=== PATIENT | male | born 1980 | race Caucasian/White ===

== ENCOUNTER 2018-02-07 16:19 | Emergency (ER) | payer MEDICAID ==
[2018-02-07] MEDS ORDERED: NORMAL SALINE 1000 ML 1,000 ML IV ONE (16:27)
--- NOTE | 2018-02-07 16:27 | ER Document Report ---
ED General - General Mode of Arrival: Medic Information source: Emergency Med Personnel Cannot obtain history due to: Unstable vital signs, Altered mental status TRAVEL OUTSIDE OF THE [place] IN LAST 30 DAYS: No <GIRISH CALDERON - Last Filed: 02/07/18 19:49> <KOLE AVALOS - Last Filed: 02/07/18 23:33> - General Chief Complaint: Overdose Stated Complaint: SEIZURE Time Seen by Provider: 02/07/18 16:26 Notes: 37-year-old male that presents today after possible overdose of Wellbutrin and EtOH. According to EMS, they were called by the patient's girlfriend after the patient had a seizure. EMS states that the Wellbutrin was the girlfriend's and it had been for several years. Girlfriend was not aware how many were left in the bottle but it was empty when EMS arrived. Girlfriend reports a possible seizure history but she is not certain. There were no other medications that the patient took as far as EMS and the girlfriend are aware. EMS states when they arrived on scene the patient was hypotensive at 69/37 with a normal heart rate. EMS states the patient was saturating 96% on a nonrebreather so no other intervention was performed prior to arrival. EMS states when going through the doors of the ER the patient began seizing again. EMS states the patient seemed like he was trying to sit up and get off the stretcher en route here but he never talked or responded to them during the entire interaction. EMS reports that the patient "had a bad week" as he lost custody of his son during a hearing yesterday according to the girlfriend. (GIRISH CALDERON) - Related Data Allergies/Adverse Reactions: levofloxacin [From Levaquin] Allergy (Verified 12/18/13 15:21) Past Medical History - General Cannot obtain history due to: Unstable vital signs, Altered mental status - Social History Smoking Status: Unknown if Ever Smoked Family History: Reviewed & Not Pertinent - Past Medical History Cardiac Medical History: Reports: Hx Hypercholesterolemia Pulmonary Medical History: Reports: Hx Pneumonia GI Medical History: Reports: Hx Gastroesophageal Reflux Disease Past Surgical History: Reports: Hx Oral Surgery - Immunizations Immunizations up to date: No Hx Diphtheria, Pertussis, Tetanus Vaccination: Yes <GIRISH CALDERON - Last Filed: 02/07/18 19:49> Review of Systems - Review of Systems -: Yes ROS unobtainable due to patient's medical condition <GIRISH CALDERON - Last Filed: 02/07/18 19:49> Physical Exam - Vital signs Interpretation: Hypotensive, Hypoxic - General General appearance: Unresponsive In distress: Severe - Respiratory Respiratory status: No respiratory distress Breath sounds: Normal - Cardiovascular Rhythm: Regular, Tachycardia - Abdominal Inspection: Normal Tenderness: Nontender - Extremities General upper extremity: Normal inspection, Normal ROM General lower extremity: Normal inspection, Normal ROM - Neurological [place] Coma Scale Eye Opening: None [place] Coma Scale Verbal: None [place] Coma Scale Motor: None [place] Coma Scale Total: 3 - Skin Skin Temperature: Warm Skin Moisture: Dry <KOLE AVALOS - Last Filed: 02/07/18 23:33> Course - Laboratory Result Diagrams: 02/07/18 16:25 02/07/18 16:25 <GIRISH CALDERON - Last Filed: 02/07/18 19:49> - Laboratory Result Diagrams: 02/07/18 16:25 02/07/18 16:25 - Diagnostic Test Radiology reviewed: Reports reviewed <OKLE AVALOS - Last Filed: 02/07/18 23:33> - Re-evaluation Re-evalutation: 02/07/18 16:33 Poison control 02/07/18 15:[address] [facility]hoan Patel ([facility] accepts patient for transfer 02/07/18 17:42 Girlfriend has arrived. Reports the patient took #51 150mg Wellbutrin prior to arrival 02/07/18 18:24 Patient awake and talking complains of feeling nauseated, zofran ordered. (GIRISH CALDERON) Patient is a 37-year-old male who is brought in by EMS. Initial call was for seizure. Patient initially with no response for EMS and was hypotensive so fluids were initiated. Patient began to wake up and pull off his equipment and then began having a seizure on the way into the emergency department. He was initially unresponsive but also possibly postictal after given Ativan for seizure activity. Initial blood gas 6.88 Planning to intubate patient but then had response to painful stimuli and had purposeful movement. Decided to repeat blood gas and monitor patient so that could watch his mental status. Bicarb drip was initiated for probable Wellbutrin overdose and acidosis Patient became more responsive and was conversive although confused. No acute findings on head CT Likely Wellbutrin toxicity. Initial lactic was 15.5 Fluids given to patient which were to switch from normal saline to half-normal after sodium came back at 156 Poison control contacted multiple times regarding this patient and they are aware that he will be transferred. Blood pressure resolving and tachycardia decreasing Patient conversational awake, maintaining airway so did not intubate. Transferred to [facility] due to lack of recreation facility attendant at this facility agreeable to plan and transfer 02/07/18 19:49 Transport is here for patient. Awake and interactive although still confused. Stable for transport. Patient is maintaining his airway with no further seizure activity since presentation (KOLE AVALOS) - Laboratory Laboratory results interpreted by me: 02/07/18 02/07/18 02/07/18 16:25 16:25 16:25 ABG pH ABG pO2 ABG HCO3 ABG Total CO2 ABG O2 Saturation VBG pH 6.88 L* VBG pCO2 83.2 H* VBG HCO3 15.0 L Sodium 156.5 H Chloride 114 H Carbon Dioxide 16 L Anion Gap 27 H Serum Osmolality Lactic Acid 15.5 H ALT 16 L Urine Protein Salicylates < 1.0 L Acetaminophen < 10 L 02/07/18 02/07/18 02/07/18 16:25 16:25 17:35 ABG pH 7.21 L ABG pO2 184.4 H ABG HCO3 16.5 L ABG Total CO2 17.7 L ABG O2 Saturation 99.0 H VBG pH VBG pCO2 VBG HCO3 Sodium Chloride Carbon Dioxide Anion Gap Serum Osmolality 347 H Lactic Acid ALT Urine Protein 30 H Salicylates Acetaminophen Critical Care Note - Critical Care Note Total time excluding time spent on procedures (mins): 150 - Evaluation and management of overdose, will re-evaluations, coordination with poison control, coordination of transfer, counseling of patient and family <KOLE AVALOS - Last Filed: 02/07/18 23:33> Discharge <GIRISH CALDERON - Last Filed: 02/07/18 19:49> <KOLE AVALOS - Last Filed: 02/07/18 23:33> - Discharge Clinical Impression: Intentional overdose of drug in tablet form, Seizure, Hypernatremia, Acidosis Hypotension Qualifiers: Hypotension type: unspecified hypotension type Qualified Code(s): I95.9 - Hypotension, unspecified Condition: Serious Disposition: [facility] Scribe Attestation: 02/07/18 23:33 I personally performed the services described in the documentation, reviewed and edited the documentation which was dictated to the scribe in my presence, and it accurately records my words and actions. (KOLE AVALOS) Scribe Documentation - Scribe Written by Scribe:: Rodney Freitas, 02/07/2018 [id number] acting as scribe for :: Erika <GIRISH CALDERON - Last Filed: 02/07/18 19:49>
[2018-02-07] MEDS ORDERED: LORAZEPAM INJ 2 MG/1 ML VIAL ONE (16:32)
[2018-02-07] MEDS ORDERED: NORMAL SALINE 1000 ML 1,000 ML IV PRN (16:39)
[2018-02-07 16:45] LABS: VENOUS BLOOD BASE EXCESS -20.1 mmol/L
[2018-02-07 16:47] LABS: VENOUS BLOOD PCO2 83.2 mmHg (35-63); VENOUS BLOOD PH 6.88 (7.30-7.42)
[2018-02-07] MEDS ORDERED: DEXTROSE 5%-WATER 1000 ML 1,000 ML with SODIUM BICARBONATE 150 MEQ IV PRN ×2 (16:48)
[2018-02-07 16:50] LABS: INTERNATIONAL RATION (INR) 1.03
[2018-02-07 16:51] LABS: HEMATOCRIT 47.2 % (37.9-51.0); HEMOGLOBIN 15.8 g/dL (13.5-17.0); MEAN CORPUSCULAR HEMOGLOBIN 30.5 pg (27.0-33.4); MEAN CORPUSCULAR HGB CONC 33.6 g/dL (32.0-36.0); MEAN CORPUSCULAR VOLUME 91 fl (80-97); PLATELET COUNT 258 10^3/uL (150-450); RED BLOOD COUNT 5.19 10^6/uL (4.35-5.55); RED CELL DISTRIBUTION WIDTH 13.1 % (11.5-14.0); WHITE BLOOD COUNT 7.4 10^3/uL (4.0-10.5)
[2018-02-07] MEDS ORDERED: SODIUM BICARBONATE 8.4% INJ 50 MEQ/50 ML DISP.SYRIN ONE ×2 (16:51→17:11)
--- NOTE | 2018-02-07 16:56 | RADIOLOGY REPORT (SQ) ---
EXAM DESCRIPTION: CT HEAD WITHOUT COMPLETED DATE/TIME: 02/07/2018 4:46 pm REASON FOR STUDY: AMS COMPARISON: None. TECHNIQUE: Axial images acquired through the brain without intravenous contrast. Images reviewed wi th bone, brain and subdural windows. Additional sagittal and coronal reconstructions were generated. Images stored on PACS. All CT scanners at this facility use dose modulation, iterative reconstruction, and/or weight based d osing when appropriate to reduce radiation dose to as low as reasonably achievable (ALARA). [facility]: Dose Right [facility]: CareDose [facility]: Dose Right [facility]: Teradose 4D [facility]: Vokle RADIATION DOSE: CT Rad equipment meets quality standard of care and radiation dose reduction techniq ues were employed. CTDIvol: 53.2 mGy. DLP: 1044 mGy-cm. mGy. LIMITATIONS: None. FINDINGS: VENTRICLES: Normal size and contour. Incidental note is made of normal variant persistent cavum septum pellucidum. CEREBRUM: No masses. No hemorrhage. No midline shift. No evidence for acute infarction. Normal gra y/white matter differentiation. No areas of low density in the white matter. CEREBELLUM: No masses. No hemorrhage. No alteration of density. No evidence for acute infarction. EXTRAAXIAL SPACES: No fluid collections. No masses. ORBITS AND GLOBE: No intra- or extraconal masses. Normal contour of globe without masses. CALVARIUM: No fracture. PARANASAL SINUSES: No fluid or mucosal thickening. SOFT TISSUES: No mass or hematoma. OTHER: No other significant finding. IMPRESSION: NORMAL BRAIN CT WITHOUT CONTRAST. EVIDENCE OF ACUTE STROKE: NO. COMMENT: Quality ID # [id number]: Final reports with documentation of one or more dose reduction techniques (e.g., Automated exposure control, adjustment of the mA and/or kV according to patient size, use of iterative reconstruction technique) TECHNICAL DOCUMENTATION: JOB ID: [id number] [employer]- All Rights Reserved Reading location - IP/workstation name: [email or web address]
--- NOTE | 2018-02-07 16:58 | RADIOLOGY REPORT (SQ) ---
EXAM DESCRIPTION: CT CHEST WITHOUT COMPLETED DATE/TIME: 02/07/2018 4:46 pm REASON FOR STUDY: AMS, hypoxia COMPARISON: Same day chest radiograph and earlier TECHNIQUE: CT scan performed of the chest without intravenous contrast. Images reviewed with lung, soft tissue and bone windows. Reconstructed coronal and sagittal MPR images reviewed. All images st ored on PACS. All CT scanners at this facility use dose modulation, iterative reconstruction, and/or weight based d osing when appropriate to reduce radiation dose to as low as reasonably achievable (ALARA). [facility]: Dose Right [facility]: CareDose [facility]: Dose Right [facility]: Teradose 4D [facility]: Smart Departing RADIATION DOSE: CT Rad equipment meets quality standard of care and radiation dose reduction techniq ues were employed. CTDIvol: 14.4 mGy. DLP: 496 mGy-cm. mGy. LIMITATIONS: No technical limitations. FINDINGS: LUNGS AND PLEURA: No masses, infiltrates, or pneumothorax. No pleural effusions or pleura l calcifications. HILAR AND MEDIASTINAL STRUCTURES: No identified masses or abnormal nodes. No obvious aneurysm. HEART AND VASCULAR STRUCTURES: No aneurysm. No pericardial effusion. UPPER ABDOMEN: No significant findings. Limited exam. THYROID AND OTHER SOFT TISSUES: No masses. No adenopathy. BONES: No significant finding. HARDWARE: None in the chest. OTHER: No other significant findings. IMPRESSION: NO SIGNIFICANT FINDING ON NON-CONTRASTED CHEST CT. TECHNICAL DOCUMENTATION: JOB ID: [id number] Quality ID # [id number]: Final reports with documentation of one or more dose reduction techniques (e.g., Au tomated exposure control, adjustment of the mA and/or kV according to patient size, use of iterative reconstruction technique) 2010 [employer]- All Rights Reserved Reading location - IP/workstation name: [email or web address]
[2018-02-07 17:00] LABS: ALANINE AMINOTRANSFERASE 16 U/L (21-72); ALBUMIN 4.6 g/dL (3.5-5.0); ALCOHOL 105 mg/dL (NONE DETECTED); ALKALINE PHOSPHATASE 63 U/L (38-126); ASPARTATE AMINO TRANSFERASE 35 U/L (17-59); BILIRUBIN,DIRECT 0.3 mg/dL (0.0-0.4); BILIRUBIN,TOTAL 0.5 mg/dL (0.2-1.3); BLOOD UREA NITROGEN 12 mg/dL (7-20); CALCIUM 9.4 mg/dL (8.4-10.2); GLUCOSE 96 mg/dL (75-110); POTASSIUM 4.3 mmol/L (3.6-5.0); TOTAL PROTEIN 7.4 g/dL (6.3-8.2)
[2018-02-07] MEDS ORDERED: PROPOFOL 1,000 MG/100 ML INFUS..BTL IV ONE (17:00)
[2018-02-07 17:05] LABS: CARBON DIOXIDE 16 mmol/L (22-30); CHLORIDE 114 mmol/L (98-107); SODIUM 156.5 mmol/L (137-145)
[2018-02-07 17:07] LABS: ACETAMINOPHEN < 10 ug/mL (10-30); ANION GAP 27 (5-19); SALICYLATE < 1.0 mg/dL (2.0-20.0)
[2018-02-07 17:09] LABS: ABSOLUTE LYMPHOCYTES# (MANUAL) 2.2 10^3/uL (0.5-4.7); ABSOLUTE MONOCYTES # (MANUAL) 0.4 10^3/uL (0.1-1.4); ABSOLUTE NEUTROPHILS# (MANUAL) 4.7 10^3/uL (1.7-8.2); BASOPHILS % (MANUAL) 0 % (0-2); EOSINOPHILS % (MANUAL) 0 % (0-6); LYMPHOCYTES % (MANUAL) 30 % (13-45); MONOCYTES % (MANUAL) 6 % (3-13); PLATELET COMMENT ADEQUATE; SEGMENTED NEUTROPHILS % (MAN) 64 % (42-78); TOTAL CELLS COUNTED 100
[2018-02-07] MEDS ORDERED: 1/2 NORMAL SALINE 1,000 ML IV ONE (17:13)
--- NOTE | 2018-02-07 17:17 | RADIOLOGY REPORT (SQ) ---
EXAM DESCRIPTION: CHEST SINGLE VIEW COMPLETED DATE/TIME: 02/07/2018 5:05 pm REASON FOR STUDY: AMS COMPARISON: 12/18/2013 EXAM PARAMETERS: NUMBER OF VIEWS: One view. TECHNIQUE: Single frontal radiographic view of the chest acquired. RADIATION DOSE: NA LIMITATIONS: None. FINDINGS: LUNGS AND PLEURA: No opacities, masses or pneumothorax. No pleural effusion. MEDIASTINUM AND HILAR STRUCTURES: No masses. Contour normal. HEART AND VASCULAR STRUCTURES: Heart normal in size. Normal vasculature. BONES: No acute findings. HARDWARE: None in the chest. OTHER: No other significant finding. IMPRESSION: NO ACUTE RADIOGRAPHIC FINDING IN THE CHEST. TECHNICAL DOCUMENTATION: JOB ID: [id number] [employer]- All Rights Reserved Reading location - IP/workstation name: [email or web address]
[2018-02-07 17:55] LABS: ARTERIAL BLOOD BASE EXCESS -10.9 mmol/L; ARTERIAL BLOOD H2CO3 1.26 mmol/L (1.05-1.35); ARTERIAL BLOOD HCO3 16.5 mmol/L (20-24); ARTERIAL BLOOD PH 7.21 (7.35-7.45); ARTERIAL BLOOD PO2 184.4 mmHg (80-100); ARTERIAL BLOOD TOTAL CO2 17.7 mmol/L (23-27)
[2018-02-07 17:56] LABS: ARTERIAL BLOOD FIO2 98%
[2018-02-07 18:00] LABS: APPEARANCE,URINE SLIGHTLY-CLOUDY; BILIRUBIN,URINE NEGATIVE (NEGATIVE); COLOR,URINE YELLOW; GLUCOSE, URINE NEGATIVE (NEGATIVE); KETONES,URINE NEGATIVE (NEGATIVE); LEUKOCYTE ESTERASE,URINE NEGATIVE (NEGATIVE); NITRITE,URINE NEGATIVE (NEGATIVE); PROTEIN,URINE 30 mg/dL (NEGATIVE); URINE SPECIFIC GRAVITY 1.013; UROBILINOGEN,URINE NEGATIVE mg/dL (<2.0)
[2018-02-07 18:12] LABS: URINE AMPHETAMINES SCREEN NEGATIVE; URINE BARBITURATES SCREEN NEGATIVE; URINE BENZODIAZEPINES SCREEN NEGATIVE; URINE COCAINE SCREEN NEGATIVE; URINE MARIJUANA (THC) SCREEN UNCONFIRMED POSITIVE; URINE METHADONE SCREEN NEGATIVE; URINE PHENCYCLIDINE SCREEN NEGATIVE
[2018-02-07] MEDS ORDERED: LORAZEPAM INJ 2 MG/1 ML VIAL IV ONE (18:23)
[2018-02-07] MEDS ORDERED: ONDANSETRON HCL INJ/PF 4 MG/2 ML SDV IV ONE (18:23)
--- NOTE | 2018-02-07 22:35 | EKG REPORT ---
SEVERITY:- ABNORMAL ECG - SINUS TACHYCARDIA NONSPECIFIC INTRAVENTRICULAR CONDUCTION DELAY BORDERLINE INFERIOR Q WAVES MINIMAL ST DEPRESSION, INFERIOR LEADS : Confirmed by: Blue Quintana MD 07-Feb-2018 22:34:02
== END 2018-02-07 20:00 | disposition short-term general hospital (02) ==
LOC: ER 16:19
DX: T50.902A Poisoning by unspecified drugs, medicaments and biological substances, intentional self-harm, initial encounter (principal); R56.9 Unspecified convulsions; I95.9 Hypotension, unspecified; E87.0 Hyperosmolality and hypernatremia; E87.2 Acidosis; R09.02 Hypoxemia; R11.0 Nausea; R00.0 Tachycardia, unspecified; R41.0 Disorientation, unspecified; Z88.1 Allergy status to other antibiotic agents
CPT/HCPCS: 93005; 96376; 99291; 99292; 96361; 96374; 96375; 36415; 87040; 87086; 80307 ×4; 82803 ×2; 82550; 83930; 85025; 85610; 80053; 81001; 84484; 83605; 71045; 70450; 71250; 93010; J2060; J3490; J2405; J7060; J7030